=== PATIENT | male | born 1965 | race African-American/Black ===

== ENCOUNTER 2024-01-24 08:53 | Outpatient (AMB) | payer MEDICARE, MEDICAID, SELFPAY ==
--- NOTE | 2024-01-24 08:55 | A.OFFVIS_ITS ---
Vital Signs 01/24/24 09:00 Height 6 ft 3 in Weight 358 lb BMI 44.7 Intake Visit Reasons: hernia Intake Note: This patient was referred by Avila Lockhart PA-C, for a hernia assessment. Patient c/o; reports pain and discomfort, reports bulge, ? incisional hernia. [employer] Press Feeder Required: No Accompanied by: Other Relationship Allergies No Known Allergies Allergy (Verified 01/24/24 09:00) HPI Comments Details: Patient presents with his . He is a proximally 2 years status post open surgery for bowel cancer. He developed in the enormous incisional hernia. This all happened at [facility]. He presents here because of a massive (approximately 23 cm) incisional hernia. Patient states this is increasing in size, become more symptomatic and he would like to have repaired. He has no other GI issues or complaints. He is tolerating his diet. He is having regular bowel habits. Chart was reviewed and patient evaluated. [facility] Family History Father Lung cancer Social History (Updated 01/24/24 @ 09:15 by DEVON Blas) Unable to assess alcohol history related to: Unknown Patient Tobacco Use Status: Tobacco use Unknown Physical Exam Vital Signs: BMI result Body Mass Index 44.7 Const Other: Patient is very morbidly obese GI Other: Massively corpulent abdomen. Patient has an enormous ventral/incisional hernia. Defect is at least 25 cm. Abdomen otherwise soft and benign Assessment & Plan Assessment & Plan (1) Incisional hernia: Code(s): K43.2 - Incisional hernia without obstruction or gangrene Category: Surgical (2) Morbid obesity: Code(s): E66.01 - Morbid (severe) obesity due to excess calories Category: Surgical Plan Patient was that surgery for repair of this at [facility] what he was told that he would have to lose significant amount of weight which has not happened. I think this patient would best be served by Clint Mason, who is a specialist for these massive/recurrent/incisional hernias which require component separation. Arrangements will be made for consultation with the surgeon. All questions answered. Patient will otherwise follow-up p.r.n.. Coding Level of Care Code New Pt Level 4 (62855) Diagnoses Incisional hernia K43.2 Morbid obesity E66.01
[2024-01-24 09:00] VITALS: BMI 44.7
== END 2024-01-24 09:41 | disposition home or self-care (01) ==
PROVIDERS: PCP Internal Medicine; Visit Provider Surgery
DX: K43.2 Incisional hernia without obstruction or gangrene (principal); E66.01 Morbid (severe) obesity due to excess calories
CPT/HCPCS: 99203

== ENCOUNTER → 2024-01-24 08:53 | Outpatient (BNVA) | payer OTHER, SELFPAY | PROVIDERS: PCP Internal Medicine; Visit Provider Surgery | DX: K43.2 Incisional hernia without obstruction or gangrene (principal); E66.01 Morbid (severe) obesity due to excess calories | CPT/HCPCS: 99202 ==